=== PATIENT | male | born 1975 ===

== ENCOUNTER 2022-03-29 08:02 | Day surgery (SDC) | payer OTHER ==
[~2022-03-29] VITALS: Ht 176.5 cm; Wt 113.4 kg
[~2022-03-29 08:02] MED LIST: ZESTRIL5 MG PO
[2022-03-29] MEDS ORDERED: DUI500 PO (16:09)
[2022-03-29] MEDS ORDERED: OXYC1TAB9 PO (16:09)
== END 2022-03-29 20:55 | disposition home or self-care (01) ==
LOC: CIR.AMB 08:02
PROVIDERS: ATTEND Orthopaedic Surgery Sports Medicine
DX: S82.62XA Displaced fracture of lateral malleolus of left fibula, initial encounter for closed fracture (principal); Z20.822 Contact with and (suspected) exposure to COVID-19; I10 Essential (primary) hypertension; E66.09 Other obesity due to excess calories
CPT/HCPCS: 27792; L8699